=== PATIENT | female | born 1995 ===

== ENCOUNTER 2021-03-06 20:17 | Emergency (ER) | payer SELFPAY ==
[2021-03-06 20:52] LABS: Urine Blood Trace-intact (Negative); Urine Glucose Negative (Negative); Urine Protein Negative (Negative)
[2021-03-06 21:09] LABS: Absolute Lymphocytes (CBC) 3.1 K/uL (0.7-4.9); Basophils % 0.5 % (0-1.3); Hematocrit 38.8 % (36.0-45.0); Lymphocytes % 34.6 % (15.3-44.8); MPV 8.4 fL (7.6-11.3)
[2021-03-06] MEDS ORDERED: NA CHLORIDE 0.9% 1,000 ML ONE (21:13)
[2021-03-06] MEDS ORDERED: ONDANSETRON 4 MG/2 ML VIAL ONE (21:13)
[2021-03-06 21:24] LABS: Protime INR 0.99
[2021-03-06 21:26] LABS: BUN Blood Urea Nitrogen 8 mg/dL (7-18); Bicarbonate 29 mmol/L (21-32); Glucose Level 86 mg/dL (74-106); Potassium 3.8 mmol/L (3.5-5.1); Sodium Level 148 mmol/L (136-145)
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
[2021-03-06] MEDS ORDERED: FENTANYL CITR 100 MCG/2 ML ONE (22:51)
[2021-03-07 00:35] VITALS: O2SAT 98
[2021-03-07 00:39] VITALS: BP 122/68
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
== END 2021-03-06 23:12 | disposition home or self-care (01) ==
LOC: ER 20:17
DX: M54.2 Cervicalgia (principal); M54.9 Dorsalgia, unspecified; V49.59XA Passenger injured in collision with other motor vehicles in traffic accident, initial encounter
CPT/HCPCS: 36415; 70450; 70486; 71260; 72125; 74177; 76377; 80048; 81003; 81025; 85025; 85610; 96361; 96374; 96375; 99285; G0390; J2405; J3010; J7030; Q9967